=== PATIENT | female | born 1955 | race Caucasian/White ===

== ENCOUNTER 2024-06-02 15:52 | Outpatient (CLI) | payer BC | END 2024-06-02 15:53 | disposition home or self-care (01) | LOC: SCSRAD 15:52 | PROVIDERS: ATTEND Family Medicine | DX: M25.572 Pain in left ankle and joints of left foot (principal); M79.89 Other specified soft tissue disorders ==

== ENCOUNTER 2024-06-09 15:28 | Outpatient (CLI) | payer BC | END 2024-06-09 15:29 | disposition home or self-care (01) | LOC: SCSRAD 15:28 | PROVIDERS: ATTEND Nurse Practitioner Family | DX: S99.921A Unspecified injury of right foot, initial encounter (principal); S92.504A Nondisplaced unspecified fracture of right lesser toe(s), initial encounter for closed fracture ==